=== PATIENT | female | born 1985 | race Caucasian/White ===

== ENCOUNTER 2023-11-02 15:37 | Emergency (ER) | payer OTHER ==
[~2023-11-02] VITALS: Ht 157.5 cm; Wt 42.6 kg
[2023-11-02 15:45] VITALS: BP_SYST 105; PULSE 91; RESP 18; TEMP 98.3; O2SAT 99
[2023-11-02] MEDS: IBUPROFEN 800 MG TABLET PO ONE (16:32)
[2023-11-02] MEDS ORDERED: DICL50TA9 PO (16:33)
[2023-11-02] MEDS ORDERED: PENI250T2 PO (16:33)
[2023-11-02 16:45] VITALS: BP_SYST 105; PULSE 91; RESP 18; TEMP 98.3; O2SAT 99
== END 2023-11-02 16:45 | disposition home or self-care (01) ==
LOC: SED 15:37
DX: K02.9 Dental caries, unspecified (principal)
CPT/HCPCS: 99283